=== PATIENT | male | born 1960 ===

== ENCOUNTER 2019-07-04 05:52 | Day surgery (SDC) | payer OTHER ==
[~2019-07-04 05:52] MED LIST: COZAAR50 MG; ZOLOFT25 MG
[2019-07-04] MEDS ORDERED: SURFAK240 M1 PO (08:42)
[2019-07-04] MEDS ORDERED: KEFLEX500 MG PO (08:42)
[2019-07-04] MEDS ORDERED: PERCOCET 7.5-31 EACH PO (08:42)
[2019-07-04] MEDS ORDERED: PROTONIX40 MG PO (08:42)
== END 2019-07-04 14:00 | disposition home or self-care (01) ==
LOC: CIR.AMB 05:52
DX: K42.0 Umbilical hernia with obstruction, without gangrene (principal)